=== PATIENT | male | born 1950 | race Caucasian/White ===

== ENCOUNTER → 2017-03-12 | Outpatient (CLI) | payer MEDICARE | END | disposition home or self-care (01) | LOC: CDC 14:27 | DX: Z01.810 Encounter for preprocedural cardiovascular examination (principal) | CPT/HCPCS: 93000 ==

== ENCOUNTER 2017-03-20 21:37 | Inpatient (IN) | payer OTHER ==
[~2017-03-20] VITALS: Ht 170.2 cm; Wt 73.1 kg
[2017-03-21] MEDS ORDERED: INDERAL10 MG PO (08:20)
[2017-03-21] MEDS ORDERED: AMPICILLIN TRI500 MG PO (08:21)
[2017-03-21 08:22] VITALS: BP 184/96
[2017-03-21] MEDS ORDERED: ASPIR 8181 M1 PO (08:22)
[2017-03-21 16:38] LABS: METH RESISTANT S AUREUS PCR NEGATIVE (NEGATIVE)
[2017-03-21 17:03] LABS: PROBE CHECK PASS; SPECIMEN PROCESSING CONTROL PASS
[2017-03-21 20:00] VITALS: BP 149/99
[2017-03-21 21:00] VITALS: BP 161/97
[2017-03-21 22:00] VITALS: BP 152/95
[2017-03-21 23:00] VITALS: BP 154/108
[2017-03-22] VITALS (8 sets, daily range): BP systolic 0–165; BP diastolic 0–108
[2017-03-22] MEDS ORDERED: HYDROCODON-ACE1 EAC7 PO (09:02)
== END 2017-03-22 11:17 | disposition home or self-care (01) | DRG 39 ==
LOC: ENRESERV 21:37 → 2SOUTH 03-21 07:52 → 4WEST 03-21 07:52 → 2SOUTH 03-21 07:52 → ENRESERV 03-21 14:23 → 4WEST 03-21 14:45 → 2SOUTH 03-21 15:09 → 4WEST 03-22 11:17
PROVIDERS: Hospitalist
DX: I65.21 Occlusion and stenosis of right carotid artery (principal); I10 Essential (primary) hypertension; G43.909 Migraine, unspecified, not intractable, without status migrainosus
CPT/HCPCS: 87641; 93005; C1768; J0330; J0360; J0690; J1100; J1644; J1650; J2250; J2405; J2720; J2795; J7120